=== PATIENT | male | born 1985 | race African-American/Black ===

== ENCOUNTER → 2019-12-06 | Outpatient (CLI) | payer SELFPAY ==
--- NOTE | 2019-12-06 12:55 | RAD ---
MRI left knee without contrast dated 12/06/2019. No comparison available. CLINICAL INDICATION: Left knee pain and swelling. TECHNIQUE: Routine multiplanar multisequence MR imaging performed. FINDINGS: There is a oblique tear at the lateral meniscal body with extension to the tibial articular surface on several coronal slices. There is also a horizontal oblique component at the anterior horn/body with extension to the peripheral edge. There are couple of tiny perimeniscal cysts. The posterior horn is intact. Medial meniscus is normal in morphology and signal. Anterior cruciate and posterior cruciate ligaments intact. Medial and lateral collateral complexes are intact. Iliotibial band, popliteus tendon and pes anserine complex within normal limits. Quadriceps and patellar tendon are intact. No abnormality of the medial or lateral retinaculum. No significant joint effusion or loose body. No significant popliteal cyst. Bone marrow signal is homogeneous. No marrow edema. Articular cartilage is intact. No osteochondral defect. IMPRESSION: 1. Complex tear anterior horn/body of lateral meniscus. There are small perimeniscal cysts. 2. Otherwise no evidence of internal derangement. Electronically signed by: Moises Meier MD (12/06/2019 12:52 PM) [id number]
== END | disposition home or self-care (01) ==
LOC: MRI 10:59
PROVIDERS: ATTEND Internal Medicine
DX: S83.282A Other tear of lateral meniscus, current injury, left knee, initial encounter (principal); X58.XXXA Exposure to other specified factors, initial encounter; Y93.89 Activity, other specified; Y92.89 Other specified places as the place of occurrence of the external cause; Y99.8 Other external cause status
CPT/HCPCS: 73721